=== PATIENT | female | born 1990 | race African-American/Black ===

== ENCOUNTER 2021-02-23 20:01 | Emergency (ER) | payer OTHER ==
[~2021-02-23] VITALS: Ht 180.3 cm; Wt 81.0 kg
[2021-02-23 20:03] VITALS: BP 104/72
[2021-02-23] MEDS ORDERED: L.E.T SOLUTION TP ONE (20:04)
--- NOTE | 2021-02-23 20:09 | NUR ---
PT IN BED, CALM AND COOPERATIVE AND TALKATIVE. APPROXIMATELY 2CM LAC TO RIGHT FOREHEAD JUST ABOVE EYEBROW. BLEEDING CONTROLLED. NO LOC. PT ON O2 SAT PROBE.
[2021-02-23] MEDS ORDERED: DIPH,PERTUSS(ACELL),TET VAC/PF 0.5 ML IM-VACC ONE ×2 (20:30→20:37)
--- NOTE | 2021-02-23 20:34 | NUR ---
LET ON, OKAY PER ERP
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
--- NOTE | 2021-02-23 21:03 | NUR ---
DC EDUCATION PROVIDED, PT DEMONSTRATES UNDERSTANDING. PT AMBULATED STEADILY TO DC WITH RN. [employer] PROVIDED FOR SAFE TRANSPORT HOME.
== END 2021-02-23 21:08 | disposition home or self-care (01) ==
LOC: EDBD 20:01 → ED 20:40
DX: S01.81XA Laceration without foreign body of other part of head, initial encounter (principal); W18.30XA Fall on same level, unspecified, initial encounter; Y93.89 Activity, other specified; Y92.009 Unspecified place in unspecified non-institutional (private) residence as the place of occurrence of the external cause; Y99.8 Other external cause status
CPT/HCPCS: 12011; 99283